=== PATIENT | male | born 1965 | race Caucasian/White ===

== ENCOUNTER → 2019-01-12 | Outpatient (CLI) | payer OTHER ==
[~2019-01-12] MED LIST: 00186-0370-20 IH; CIPRO 500MG TA500 MG PO; DICLOZOR1 EACH TP; FLOMAX0.4 MG PO; FLONASEALLERGY NS; INSLANT SQ; NO HOME MEDICATIONS; NORVASC 10MG10 MG PO; NOVLOG SQ; PERCOCET 325 MG1 TA2 PO; PHENERGAN 25 TA25 MG PO
== END ==
LOC: COL.RAD 11:37
DX: Z53.8 Procedure and treatment not carried out for other reasons (principal)

== ENCOUNTER → 2019-01-28 | Outpatient (CLI) | payer OTHER ==
[~2019-01-28] VITALS: Ht 175.3 cm; Wt 112.9 kg
[2019-01-28 08:44] VITALS: BP 151/98; PULSE 89
[2019-01-28 10:30] VITALS: BP 149/87; PULSE 89
--- NOTE | 2019-01-28 10:50 | NUR ---
pt was taken to pov with friend, friend drove home
== END ==
LOC: COL.RAD 01-27 09:00
DX: M75.121 Complete rotator cuff tear or rupture of right shoulder, not specified as traumatic (principal)
CPT/HCPCS: J2250; J2704